=== PATIENT | female | born 1995 | race Caucasian/White ===

== ENCOUNTER 2016-08-10 11:52 | Emergency (ER) | payer OTHER ==
[2016-08-10 11:58] VITALS: BP 106/68; PULSE 76; RESP 18; TEMP 98; O2SAT 99
--- NOTE | 2016-08-10 12:33 | C.PDOC ---
History Of Present Illness 21 yr old female presents to the ER with complaints of persistent right ankle pain since morning. Patient states she was seen at [facility] yesterday, had a foot xray. Patient reports limited improvement with Motrin. Patient denies leg pain, back pain, weakness or numbness. PERSIST R ANKLE PAIN SINCE TODAY. SEEN @ [facility] YEST, +FOOT FX. PS LIMITED IMPROVE W MOTRIN. EXAM NAD EXT R ANKLE IN SHORT LEG SPLINT: +CAP REFILL <2 SECS, MIN DISTAL SWELL; MINOR HEMATOMA TOP OF FOOT NEURO INTACT PENDING PODIATRY APPT 08/14. ADVISED ELEVATION, CONT W MOTRIN, TYL #3 PRN Time Seen by Provider: 08/10/16 12:05 Chief Complaint (Nursing): Lower Extremity Problem/Injury History Per: Patient History/Exam Limitations: no limitations Onset/Duration Of Symptoms: Sudden Onset (since morning ) Current Symptoms Are (Timing): Still Present Past Medical History Reviewed: Historical Data, Nursing Documentation, Vital Signs Vital Signs: Last Vital Signs Temp 98.0 F 08/10/16 11:57 Pulse 76 08/10/16 11:57 Resp 18 08/10/16 11:57 BP 106/68 08/10/16 11:57 Pulse Ox 99 08/10/16 12:33 - [facility] Procedures ANESTH INJECT-SPIN CANAL (05/18/13) INJECT STEROID (05/18/13) SPINAL CANAL INJECT NEC (05/18/13) Family History: States: No Known Family Hx - Social History Hx Alcohol Use: No Hx Substance Use: No - Immunization History Hx Tetanus Toxoid Vaccination: No Hx Influenza Vaccination: Yes Hx Pneumococcal Vaccination: No Review Of Systems Except As Marked, All Systems Reviewed And Found Negative. Musculoskeletal: Positive for: Other ((+) Right ankle pain ). Negative for: Back Pain, Leg Pain Neurological: Negative for: Weakness, Numbness Physical Exam - Physical Exam Appears: Non-toxic, No Acute Distress Skin: Warm, Dry Head: Atraumatic, Normacephalic Neck: Normal, Normal ROM, Supple Chest: Symmetrical, No Tenderness Cardiovascular: Rhythm Regular, No Murmur Extremity: Capillary Refill (<2), Swelling (Right Ankle - Minimal distal swelling. ), Other (Right ankle in a short leg splint. Minor hematoma top of foot.) Pulses: Left Dorsalis Pedis: Normal, Right Dorsalis Pedis: Normal Neurological/Psych: Oriented x3, Normal Speech, Normal Motor, Normal Sensation ED Course And Treatment O2 Sat by Pulse Oximetry: 99 Medical Decision Making Medical Decision Making: Patient is pending podiatry appointment 08/14/2016. Advised to elevate the foot and to continue with Motrin, Tylenol #3 PRN. Disposition Counseled Patient/Family Regarding: Diagnosis, Need For Followup, Rx Given - Disposition Referrals: [facility] [Outside] [facility] [Outside] Disposition: HOME/ ROUTINE Disposition Time: 12:32 Condition: GOOD Prescriptions: Acetaminophen/Codeine [Tylenol/Codeine 300 MG/30 MG] 2 tab PO Q6H #20 tab Instructions: Foot Fracture in Adults (ED) - Clinical Impression Clinical Impression: Foot fracture - Scribe Statement The provider has reviewed the documentation as recorded by the Jericho Magallanes Provider Attestation: All medical record entries made by the Michaelibemily were at my direction and personally dictated by me. I have reviewed the chart and agree that the record accurately reflects my personal performance of the history, physical exam, medical decision making, and the department course for this patient. I have also personally directed, reviewed, and agree with the discharge instructions and disposition.
== END 2016-08-10 12:40 | disposition home or self-care (01) ==
LOC: C.ER 11:52
DX: S92.901G Unspecified fracture of right foot, subsequent encounter for fracture with delayed healing (principal); X58.XXXD Exposure to other specified factors, subsequent encounter